=== PATIENT | female | born 1985 | race Hispanic/Latino ===

== ENCOUNTER 2016-12-19 18:08 | Emergency (ER) | payer OTHER ==
[2016-12-19 18:21] VITALS: BP 118/78; PULSE 87; RESP 15; O2SAT 100
[2016-12-19] MEDS ORDERED: 0.9% Sodium Chloride 1,000 ML IV ONE (19:01)
[2016-12-19 19:59] LABS: Mean Corpuscular Hemoglobin 29.1 pg (27.0-35.0); Mean Corpuscular Volume 86.9 fL (81-100)
[2016-12-19 20:04] LABS: APPEARANCE,URINE HAZY (CLEAR,HAZY); COLOR,URINE RED (YELLOW); OCCULT BLOOD,URINE LARGE (NEGATIVE); PH,URINE 5.5 (5.0-8.0); UROBILINOGEN,URINE NORMAL (NORMAL)
--- NOTE | 2016-12-19 20:21 | ED.REPORT ---
HPI- Female Date of Service Dec 19, 2016 ED Provider: Raul Herrera MD Patient is a 31 year old, 9 week female who presents to the ED complaining of vaginal bleeding that began yesterday. Patient began to express concern when the bleeding become increasingly worse with brown clots. She also reports mild abdominal cramping. Patient reports that she is bleeding through her sheets and this is heavier than her typical period. She denies taking any blood thinners. . Emergency department the patient is afebrile stable vital signs examination as above. Pelvic examination reveals a 2 cm dilated cervix with clotted blood present in the vaginal vault. Ultrasound was obtained and demonstrated findings consistent with demise which seems to fit her clinical picture. CBC and CMP were unremarkable. Urinalysis was unconvincing for UTI. She is Rh+ and therefore RhoGAM was not administered. Patient remains stable with benign serial abdominal examinations. No evidence of significant ongoing blood loss or hemorrhage. Patient was discussed with her OB /TAILMAN who has been following her throughout this with concern that she may miscarry due to her intermittent bleeding throughout the . Patient was updated as these findings while she is upset she is handling it relatively well. Discussed management options and patient prefers expectant management. Patient's MUSICAL INSTRUMENT MAKER prefers this plan as well. She will be discharged with Aztec for pain and is advised to take ibuprofen. She was advised of what to expect over the next couple days. Her MUSICAL INSTRUMENT MAKER will make sure that she is seen first thing on Thursday. Prior to discharge follow-up and return precautions were reviewed in detail with the patient who verbalized understanding and agreement with the plan. The patient was discharged in stable condition. Nursing Notes Stated Complaint: 9 WEEKS , HEAVY BLEEDING AND CRAMPS Chief Complaint: & Delivery Nursing Notes Reviewed: Yes Allergies: Coded Allergies: No Known Allergies (Unverified , 12/19/16) Scheduled PRN Hydrocodone-Acetaminophen 5-325 mg (Hydrocodone-Acetaminophen 5-325 mg) 1 Each Tablet 1 TABLET PO Q4H PRN PRN For Pain General Time Seen by MD: 19:00 Chief Complaint Vaginal bleeding... Hx Obtained From: Patient Arrived By: Walk-in Sudden in Onset?: No Onset Occurred: Yesterday Context of Onset: , 1st trimester Symptom Duration: Since onset Location: : Abdomen lower Quality: Cramping Radiation: Does not radiate Severity: Current: Moderate Severity: Maximum: Moderate Associated with: Reports: Abdominal pain Pertinent Negative: Pt denies other symptoms Status: Positive - ED urine HCG : 3 Para: 2 Recent Healthcare: No recent hospitalization, Recent doctor visit Past Medical History Past Medical History 9 weeks - Past Surgical History None reported. Smoking History Unknown if Ever Smoker Social History Other Social History: Good social support, Local resident Ambulatory Status Independent Review of Systems GI: Reports: Abdominal pain (cramping) Female: Reports: (9 weeks ), Vaginal bleeding - abnl Complete sys rev & neg: except as marked. Physical Exam Initial Vital Signs Vital Signs (First) Date Time Temp Pulse Resp B/P Pulse Ox O2 Delivery O2 Flow Rate FiO2 12/19/16 18:21 36.7 87 15 118/78 100 Room Air Initial VS: Reviewed Neck: Supple, Non-tender, Full range of motion Extremities: Vascular intact, Neuro intact, No swelling, No tenderness Skin: Warm, Dry, No cyanosis Neurologic: Alert, Oriented, Nonfocal Psychiatric: Mood/affect normal, Behavior normal, Normal thought content Female Genitourinary: Security Incident Response Specialist present, Atraumatic Vaginal Bleeding / Discharge: Positive: Clots present (Borwn clotting present ) , Discharge bloody, Discharge brown : Cervix slightly dilated 2 cm Blood present at Os General/Constitutional: Awake, Alert, No acute distress, Well appearing, Well developed Respiratory / Chest: Atraumatic, Breath sounds NL, Breath sounds = bilat, No respiratory distress Cardiovascular: Heart rate NL, Regular rhythm, Heart sounds NL, No gallop, No murmurs, No rubs Abdomen: Atraumatic, Soft, Non-tender, No distention Interpretation & Diagnostics Lab Results Interpretation Result Diagram: 12/19/16 1950 12/19/16 1950 Test 12/19/16 19:29 12/19/16 19:50 12/19/16 20:17 Urine Color Red (YELLOW) Urine Appearance Hazy (CLEAR,HAZY) Urine pH 5.5 (5.0-8.0) Urine Specific Harrington <1.005 (1.003-1.035) Urine Protein 30mg/dL (NEG,TRACE) Urine Glucose (UA) Negativemg/dL (NEGATIVE) Urine Ketones Negativemg/dL (NEGATIVE) Urine Occult Blood Large (NEGATIVE) Urine Nitrite Negative (NEGATIVE) Urine Bilirubin Negative (NEGATIVE) Urine Urobilinogen Normalmg/dL (NORMAL) Urine Leukocyte Esterase Trace (NEGATIVE) Urine RBC 11-50/hpf (0-2) Urine WBC 0-5/hpf (0-5) Urine Epithelial Cells Occasional/hpf (NONE-MOD) Urine Crystals None seen (NONE SEEN) Urine Bacteria None/hpf (NONE-FEW) Urine Hyaline Casts None/lpf (NONE) Urine Granular Casts None seen (NONE SEEN) Urine Waxy Casts None seen (NONE SEEN) Urine Red Blood Cell Casts None seen (NONE SEEN) Urine White Blood Cell Casts None seen (NONE SEEN) Urine Mucus None seen (None Seen) Urine Trichomonas None seen (NONE SEEN) Urine Yeast None (NONE SEEN) Urinalysis Comment None Urine Culture Reflexed Indicated White Blood Count 11.1th/mm3 (3.8-10.1) Red Blood Count 4.26mil/mm3 (3.90-5.20) Hemoglobin 12.4g/dL (12.0-15.6) Hematocrit 37.0% (35.0-46.0) Mean Corpuscular Volume 86.9fL (81-100) Mean Corpuscular Hemoglobin 29.1pg (27.0-35.0) Mean Corpuscular Hemoglobin Concent 33.5% (32.0-37.0) Red Cell Distribution Width 13.1% (12.3-15.4) Platelet Count 258bil/L (150-400) Sodium Level 138mEq/L (134-144) Potassium Level 4.0mEq/L (3.5-5.2) Chloride Level 104mEq/L (97-108) Carbon Dioxide Level 20mmol/L (18-29) Blood Urea Nitrogen 7mg/dL (6-20) Creatinine 0.54mg/dL (0.57-1.00) Estimat Glomerular Filtration Rate 189mL/min (>59) Glucose Level 83mg/dL (60-99) Calcium Level 9.2mg/dL (8.5-10.1) Total Bilirubin 0.3mg/dL (0.0-1.2) Aspartate Amino Transf (AST/SGOT) 24U/L (0-50) Alanine Aminotransferase (ALT/SGPT) 18U/L (0-32) Alkaline Phosphatase 82U/L (25-150) Total Protein 7.7g/dL (6.4-8.4) Albumin 4.2g/dL (3.4-5.0) HCG Beta Subunit 9527mIU/mL Hold Engle Top Tube Received (Received) US Focused OB demise Supposed to be 9 weeks - seen at 6 weeks Exam Performed by: Allied health pract Re-Eval/Medical Decision Re-Evaluation/Progress : Time of Eval: : Patient Status: Condition improved Re-Evaluation/Progress Note: Patient is rechecked. She is informed of her results and diagnosis. All questions about the intended treatment plan are addressed. She understands and agrees with the plan to discharge with follow up. Consultation : Referral / Consult Name: Salty Haley MD Consulted With: Primary care physician Call Returned at: : Prepress Proofer: Will see patient, Agrees with eval, Agrees with plan, Accepts admit Note: Recommends follow up with him on Thursday. Counseled Regarding: Diagnosis, Lab results, Need for follow-up, When/why to return to ED Discharge & Departure Impression: Primary Impression: Inevitable Additional Impressions: Vaginal bleeding Abdominal cramping Disposition: Home Discharge Condition All VS Reviewed: Yes Condition: Improved Patient Instructions: Miscarriage (ED) Additional Instructions: Thank you for seeking care at emergency room. It is difficult for us to make definitive diagnoses in the ED but we believe that you are experiencing a miscarriage. I am sorry for your loss. Take 600 mg of ibuprofen every 3 hours as needed for pain. You will be discharged with a prescription for Aztec*. Please take as directed You should follow-up with Dr. Haley on Thursday. You should return to the ED immediately if you develop worsening abdominal pain , fevers, vomiting, worsening bleeding, lightheadedness, weakness or any other concerning signs or symptoms. Thank you for letting us partake in your care today. You have been prescribed a narcotic for pain relief. These drugs are usually combined with acetaminophen (Tylenol#3, Percocet, Darvocet, Anexsia, Vicodin) or aspirin (Empirin#3, Percodan, Synalogs-DC) for increased effect. Narcotics act on the central nervous system to reduce pain; they also impair mental alertness and physical abilities. We advise you not to drink alcohol, drive a car, or operate dangerous equipment when you are taking theses drugs. You can lessen stomach irritation from your medicine by taking it with meals or a full glass of water. Common side effects of narcotics are: Nausea and vomiting, heartburn, consitpation, dizziness, sleepiness, and mood changes. If you have bothersome side effects or symptoms of an allergic reaction (itching, hives, rash), stop taking your medicine and call your doctor or the emergency room right away. Please keep your narcotic medicine well out of the reach of children. Referrals: Salty Haley MD (PCP) Scribe Attestation Portions of this note were transcribed by Lu Brown. I, Dr. Herrera personally performed the history, physical exam and medical decision-making; I reviewed and confirmed the accuracy of the information in the transcribed note. Signed by: Milton Oconnell, 12/19/16 [id number]. copies to: Salty Haley MD, Beck O MD Dec 19, 2016 20:21 LU BROWN Dec 19, 2016 20:32
--- NOTE | 2016-12-19 20:56 | DRSVH ---
PROCEDURE: US OB<14 WKS+OB TRANSVAG INDICATIONS: preg/bleed OUTSIDE/PRIOR DATING DATA: Last menstrual period (LMP): Not available. LMP-based estimated date of delivery (DALE): Not available. First dating scan (date and location): 12/01/2016 at [facility]. Estimated date of delivery (DALE) from first dating scan: 07/23/2017. TECHNIQUE: Real-time scanning was performed of the fetus and maternal pelvic organs, with image documentation. Endovaginal scanning was also performed to better visualize the fetus and maternal ovaries. COMPARISON: None. FINDINGS: Embryo: There is an IUP. The crown-rump length measures 0.4 cm, corresponding to gestational age of 6 weeks 1 day. Based on the initial scan, the estimated gestational age is 9 weeks 1 day. No cardiac activity identified on the current exam. There is a sonolucent area 3.0 x 0.7 x 1.0 cm in the inferio r segment, consistent with subchorionic hematoma. Measurement variability in dating: +/- 4 weeks by LMP, +/- 7 days by mean sac diameter (use before 6 weeks gestation if crown-rump length not able to be measured), +/- 5 days by crown-rump length (up t o 8 weeks 6 days gestation), +/- 7 days by crown-rump length (up to 13 weeks 6 days gestation). Maternal organs: Ovaries are within normal limits. Limited images through the kidneys demonstrate n o hydronephrosis. IMPRESSION: The ultrasound findings are highly suspicious for demise. Recommend clinical correl ation and followup. Dictated by: Shonda Perkins M.D. on 12/19/2016 at 20:49 Approved by: Shonda Perkins M.D. on 12/19/2016 at 20:55
[2016-12-19] MEDS ORDERED: HYDR-4003 PO (21:24)
[2016-12-19 21:50] VITALS: BP 101/69; PULSE 74; RESP 16; O2SAT 100
== END 2016-12-19 21:48 | disposition home or self-care (01) ==
LOC: SED 18:08
DX: O03.9 Complete or unspecified spontaneous abortion without complication (principal); O26.91 Pregnancy related conditions, unspecified, first trimester; R10.9 Unspecified abdominal pain; Z3A.09 9 weeks gestation of pregnancy; Z79.891 Long term (current) use of opiate analgesic
CPT/HCPCS: 36415; 76801; 76817; 80053; 81000; 84702; 85027; 87086; 87088; 96360; 99285; J7030